=== PATIENT | female | born 1935 | race Caucasian/White ===

== ENCOUNTER 2018-10-14 12:45 | Inpatient (IN) | payer MEDICARE, OTHER ==
[~2018-10-14] VITALS: Ht 154.9 cm; Wt 46.0 kg
--- NOTE | 2018-10-14 12:53 | NUR ---
PT ARRIVED ON FLOOR VIA W/C ACCOMPANIED BY A LADY; ASSISTED TO BED BY CNAS X2; PT CONFUSED NOT ABLE TO ANSWER QUESTIONS OR FOLLOW COMMANDS; ASSISTED PT INTO A GOWN AFTER MULTIPLE ATTEMPTS; WT AND VITALS OBTAINED; BED ALARM ACTIVE; PT KEPT COVERING HER HEAD, SAYING "GET OUT OF MY HOUSE, DONT' HIT ME" ASSURED PT WE ARE NOT HURTING HER; WILL CONTINUE TO MONITOR.
[2018-10-14 13:10] VITALS: BP 100/60
[2018-10-14 13:23] LABS: HEMATOCRIT 48.4 % (37.0-47.0); HEMOGLOBIN 14.9 g/dl (12.0-16.0); IMMATURE GRANULOCYTES 0.3 % (0.0-5.0); MEAN CELL VOLUME 91.8 fL CALC (80.0-100.0); MEAN CORPUSCULAR HGB 28.3 pG CALC (26.0-32.0); MEAN CORPUSCULAR HGB CONC 30.8 g/L CALC (32.0-36.0); NEUT# 4.86 thou/uL (2.00-7.15); RED BLOOD COUNT 5.27 mill/uL (4.20-5.60)
--- NOTE | 2018-10-14 14:07 | NUR ---
PT GOING DOWN FOR CT, VIA STRETCHER ACCOMPANIED BY TWO STAFF IN STABLE CONDITION.
--- NOTE | 2018-10-14 14:30 | NUR ---
PT BACK FROM CT VIA STRETCHER, ACCOMPANIED BY TWO STAFF MEMBERS; UNABLE TO PREFORM CT AND XRAY DUE TO PT BEING RESTLESS. NO S/S OF DISTRESS NOTED;
[2018-10-14] MEDS ORDERED: MULTI VIT PO (14:36)
[2018-10-14] MEDS ORDERED: DOCUSATE CAL240 MG PO (14:36)
[2018-10-14] MEDS ORDERED: DIVALPROEX SOD250 MG PO (14:39)
[2018-10-14] MEDS ORDERED: ZOCOR PO ×2 (14:44→14:57)
[2018-10-14] MEDS ORDERED: POM PO ×2 (14:45→14:54)
[2018-10-14] MEDS ORDERED: LORAZEPAM0.5 MG PO ×2 (14:46→14:47)
[2018-10-14] MEDS ORDERED: OLANZAPINE5 MG PO (14:47)
[2018-10-14 16:35] LABS: ALBUMIN 3.4 g/dL (3.2-5.0); ALKALINE PHOSPHATASE 88 u/l (38-126); ANION GAP 14 (6-22 (CALC)); BILIRUBIN, TOTAL 0.4 mg/dL (0.0-1.4); BUN 25 mg/dL (8-23); BUN/CREATININE RATIO 32 (12-20 (CALC)); CARBON DIOXIDE 23 mmol/l (22-30); CHLORIDE 107 mmol/l (95-108); CREATININE 0.8 mg/dL (0.5-1.0); GFR > 60 ML/MIN (>=60 (CALC)); GFR FOR AFR.AMER. > 60 ML/MIN (>=60 (CALC)); POTASSIUM 4.2 mmol/l (3.5-5.1); SGOT/AST 32 u/l (9-36); SODIUM 140 mmol/l (137-146); TOTAL PROTEIN 6.4 g/dL (6.3-8.2)
[2018-10-14 17:04] LABS: TSH, 3RD GENERATION 2.85 uIU/mL (0.47 - 4.68)
--- NOTE | 2018-10-14 17:08 | NUR ---
PT APPEARS TO BE SLEEPING WITH EYES CLOSED LAYING ON LT SIDE; RESP EVEN AND UNLABORED ON ROOM AIR; IVF FLOWING WITH EASE; SITE APPEARS HEALTHY; BED ALARM ACTIVE; WILL CONTINUE TO MONITOR.
[2018-10-14 17:44] VITALS: BP 102/64
--- NOTE | 2018-10-14 18:17 | NUR ---
MOD INCONTINENT URINE, PER CARE PROVIDED; SITTING UP IN BED EATING SUPPER; RESP EVEN AND UNLABORED; IVF INFUSING WELL; BED ALARM ACTIVE;
[2018-10-14 20:53] VITALS: BP 91/62
--- NOTE | 2018-10-14 22:56 | NUR ---
Patient resting in bed. No S&S of distress. Patient is confused and pulling at covers and is sideways in bed. Patient straightened up. No complaints of pain. Will continue to monitor patient progress.
--- NOTE | 2018-10-15 00:40 | NUR ---
Patient resting in bed sleep. No S&S of distress. Spoke with x-ray tech. Patient does not follow directions and will not be still inorder to get an accurate reading. MD notified. Will attempt again in the am.
[2018-10-15 04:00] VITALS: BP 84/51
--- NOTE | 2018-10-15 04:17 | NUR ---
Patient continues to sleep. No S&S of distress. v/s wnl. No change in previous condition.
--- NOTE | 2018-10-15 08:00 | NUR ---
PT APPEARS TO BE SLEEPING WITH EYES CLOSED ON HER RT SIDE; RESP EVEN AND UNLABORED ON ROOM AIR; IVF D5-1/2 @100CC/HR; SITE APPEARS HEALTHY; VITALS OBTAINED; BED ALARM ACTIVE; CALL DURÁN IN REACH; WILL CONTINUE TO MONITOR.
[2018-10-15 08:02] VITALS: BP 94/53
--- NOTE | 2018-10-15 11:02 | NUR ---
PT APPEARS TO BE SLEEPING ON HER LT SIDE; RESP EVEN AND UNLABORED ON ROOM AIR; IVF INFUSING WELL, IVS APPEARS HEALTHY; NO S/S OF DISTRESS NOTED; BED ALARM ACTIVE; WILL CONTINUE TO MONITOR.
--- NOTE | 2018-10-15 11:17 | NUR ---
ETHAN WIGGINS (DAUGHTER & SURROGATE) LIVES IN [place] [phone] CLD FOR UPDATE
--- NOTE | 2018-10-15 12:24 | NUR ---
PT SEEMS AWAKE AND IS EATING LUNCH WITH ASSISTANCE BY FORECLOSURE PARALEGAL; RESP EVEN AND UNLABORED ON ROOM AIR; IVF INFUSING WELL; BED ALARM ACTIVE; WILL CONTINUE TO MONITOR.
[2018-10-15 14:40] VITALS: BP 128/81
[2018-10-15 15:00] VITALS: BP 97/65
--- NOTE | 2018-10-15 15:20 | NUR ---
PT AWAKE, SEEMS TO BE WATCHING TV, PARTIAL NUDE, REMOVING CLOTHING, SHEETS,; DOES NOT FOLLOW COMMANDS, BUT PLEASANT; IVF INFUSING WELL, BED ALARM ACTIVE; WILL CONTINUE TO MONITOR.
--- NOTE | 2018-10-15 19:00 | NUR ---
RECEIVED REPORT FROM DAY NURSE. PT RESTING CROOKEDLY IN BED. BLANKET OVER HER HEAD. PT FIXED UPRIGHT. CALL DURÁN IN PLACE. BED ALARM ON. WILL CONTINUE TO MONITOR.
[2018-10-15 19:23] VITALS: BP 91/64
--- NOTE | 2018-10-15 20:30 | NUR ---
PT RESTING IN BED PT IS CROOKED IN BED AND WILL NOT STAY THE RIGHT WAY. PT IS VERY CONFUSED. TALKING TO HERSELF AND TO ENTEROSTOMAL THERAPY NURSE. WILL NOT ANSWER CORRECTLY WHEN ASKED HER NAME SHE JUST CONTINUES TO RAMBLE. ASSESMENT COMPLETED AT THIS TIME. IV INFUSING WELL. BED ALARM IN PLACE. WILL CONTINUE TO MONITOR.
--- NOTE | 2018-10-15 22:36 | NUR ---
CYLINDER MACHINE OPERATOR IN TO CHECK ON PT. IV FOUND DISLODGED. DR. ANDERS CALLED, NEW ORDERS RECEIVED TO D/C FLUIDS AND IV. PT CLEANED AND REPOSITIONED. BED ALARM IN PLACE. CALL DURÁN IN REACH. WILL CONTINUE TO MONITOR.
--- NOTE | 2018-10-16 01:02 | NUR ---
PT RESTING IN BED WITH EYES CLOSED. NO S/S OF DISTRESS NOTED. BED ALARM IN PLACE. WILL CONTINUE TO MONITOR.
[2018-10-16 03:59] VITALS: BP 96/60
--- NOTE | 2018-10-16 04:00 | NUR ---
PT RESTING QUIETLY IN BED. PT LAYING DIAGONAL IN BED CURLED UP IN A BALL. REPOSITION MULTIPLE TIMES THROUGH THE NIGHT AND PT REVERTS BACK TO ORIGINAL POSITION. BED ALARM IN PLACE. WILL CONTINUE TO MONITOR.
--- NOTE | 2018-10-16 07:00 | NUR ---
REPORT RECEIVED FROM DELANO DUPONT;PT APPEARS TO BE SLEEPING IN SEMI FOWLERS POSITION;RESPIRATIONS EVEN AND UNLABORED ON RA;NO S/S OF DISTRESS NOTED AT THIS TIME;FALL PRECAUTIONS IN PLACE WITH BED ALARM ON FOR PT SAFETY;CALL LIGHT IN REACH;WILL CONTINUE TO MONITOR
[2018-10-16 08:20] VITALS: BP 98/68
--- NOTE | 2018-10-16 08:20 | NUR ---
PT RESTING IN SEMI FOWLERS POSITION ATTEMPTING TO EAT BREAKFAST;CONFUSED X4, ATTEMPTED TO RE-ORIENT PT BUT UNSUCCESSFUL;PT RAMBLES ON ABOUT THE WEATHER AND THE NEWSPAPER;VS OBTAINED AND ASSESSMENT COMPLETED;RESPIRATIONS EVEN AND UNLABORED ON RA,CLEAR LUNG SOUNDS NOTED;ABDOMEN SOFT ON PALPATION AND ACTIVE IN ALL 4 QUADRANTS;STRONG PEDAL PULSES;SKIN INTACT;NO IV SITE,MD AWARE;PO FLUIDS ENCOURAGED;NO S/S OF DISTRESS NOTED,PAIN SCALE AND REPORTING EDUCATED;SAFETY PRECAUTIONS IN PLACE WITH BED ALARM ON FOR PT SAFETY;CALL LIGHT IN REACH;WILL CONTINUE TO MONITOR
--- NOTE | 2018-10-16 08:34 | NUR ---
AT BEDSIDE DISCUSSING POC.
--- NOTE | 2018-10-16 12:05 | NUR ---
PT RESTING IN SEMI FOWLERS POSITION WITH INSTRUCTOR PRIVATE'S AT BEDSIDE RECEIVING A BED BATH AFTER BOWEL MOVEMENT;PT REMAINS CONFUSED;RESPIRATIONS EVEN AND UNLABORED ON RA;NO S/S OF DISTRESS NOTED;PO FLUIDS AND FOOD ENCOURAGED;ASSESSMENT REMAINS UNCHANGED AT THIS TIME;ALL SAFETY PRECAUTIONS REINFORCED WITH BED ALARM ON FOR SAFETY AND CALL LIGHT IN REACH;WILL CONTINUE TO MONITOR
--- NOTE | 2018-10-16 16:50 | NUR ---
PT APPEARS TO BE SLEEPING IN SEMI FOWLERS POSITION WITH BLANKETS OVER HER FACE;RESPIRATIONS EVEN AND UNLABORED ON RA;NO S/S OF DISTRESS NOTED;FALL PRECAUTIONS IN PLACE WITH BED ALARM ON FOR PT SAFETY;CALL LIGHT IN REACH;WILL CONTINUE TO MONITOR
[2018-10-16 18:24] VITALS: BP 100/69
--- NOTE | 2018-10-16 19:00 | NUR ---
RECEIVED REPORT FROM NURSE ALDO PT RESTING IN BED, NO DISCOMFORTS NOTED, BED ALARM IN PLACE
[2018-10-16 19:17] VITALS: BP 93/58
[2018-10-16 19:19] LABS: CHOLESTEROL HDL RATIO 3.7 (<4.4 (CALC))
--- NOTE | 2018-10-16 20:00 | NUR ---
PATIENT RESTING IN BED TALKING TO SELF, CONFUSED X4 UABLE TO REORIENT. NO IV MD PREVIOUSLY NOTIFIED, PT IS [place], NO DISCOMFORTS NOTED AT THIS TIME, REMAINS ON BED ALARM.
--- NOTE | 2018-10-17 | NUR ---
PATIENT IN BED,EYES CLOSED, EVEN UNLABORED BREATHING, REMAINS ON BED ALARM.
[2018-10-17 02:29] VITALS: BP 100/62
[2018-10-17 04:53] VITALS: BP 102/65
--- NOTE | 2018-10-17 05:18 | NUR ---
PATIENT AWAKE, RESTING IN BED, TALKING TO SELF, NO DISCOMFORTS NOTED AT THIS TIME, BED ALARM IN PLACE.
[2018-10-17 05:41] LABS: HEMOGLOBIN 13.2 g/dl (12.0-16.0); IMMATURE GRANULOCYTES 0.3 % (0.0-5.0); MEAN CELL VOLUME 86.9 fL CALC (80.0-100.0); MEAN CORPUSCULAR HGB CONC 32.2 g/L CALC (32.0-36.0); NEUT# 2.8 thou/uL (2.00-7.15); RED BLOOD COUNT 4.72 mill/uL (4.20-5.60); RED CELL DISTRI WIDTH 14.6 % (11.5-15.5)
[2018-10-17 06:04] LABS: ALBUMIN 3.1 g/dL (3.2-5.0); ALKALINE PHOSPHATASE 91 u/l (38-126); ANION GAP 13 (6-22 (CALC)); BILIRUBIN, TOTAL 0.6 mg/dL (0.0-1.4); BUN 11 mg/dL (8-23); BUN/CREATININE RATIO 17 (12-20 (CALC)); CARBON DIOXIDE 21 mmol/l (22-30); CHLORIDE 111 mmol/l (95-108); CREATININE 0.7 mg/dL (0.5-1.0); GFR > 60 ML/MIN (>=60 (CALC)); GFR FOR AFR.AMER. > 60 ML/MIN (>=60 (CALC)); POTASSIUM 3.6 mmol/l (3.5-5.1); SGOT/AST 34 u/l (9-36); SODIUM 141 mmol/l (137-146); TOTAL PROTEIN 6.1 g/dL (6.3-8.2)
--- NOTE | 2018-10-17 06:40 | NUR ---
PT REPORT RECEIVED FROM GONZALO BISHOP. PT RESTING. NO S/S OF DISTRESS. CALL LIGHT IN REACH. WILL CONTINUE TO MONITOR.
[2018-10-17 09:04] VITALS: BP 103/67
--- NOTE | 2018-10-17 09:04 | NUR ---
PT NOT RESPONDING MUCH. MOANS AT TIMES. RESP EVEN AND UNLABORED. LUNG SOUNDS CLEAR. BOWEL SOUNDS ACTIVE X4. STRONG RADIAL AND PEDAL PULSES. SKIN INTACT. PTP DENIES ANY PAIN OR NEEDS. POC DISCUSSED. SAFETY PRECAUTIONS IN PLACE. CALL LIGHT IN REACH. WILL CONTINUE TO MONITOR.
--- NOTE | 2018-10-17 12:05 | NUR ---
PT RESTING IN BED. NO C/O PAIN OR NEEDS. CALL LIGHT IN REACH. BED ALARM ON. WILL CONTINUE TO MONITOR.
[2018-10-17 15:51] VITALS: BP 112/71
--- NOTE | 2018-10-17 16:25 | NUR ---
PT IN BED SLEEPING. NO C/O PAIN OR NEEDS. CALL LIGHT IN REACH. BED ALARM ON. WILL CONTINUE TO MONITOR.
--- NOTE | 2018-10-17 19:00 | NUR ---
RECEIVED REPORT FROM DAY NURSE. PT RESTING QUIETLY IN BED NO S/S OF DISTRESS NOTED.
[2018-10-17 19:17] VITALS: BP 82/62
--- NOTE | 2018-10-17 20:40 | NUR ---
PT RESTING IN BED WITH BLANKET OVER HER HEAD, SIDE WAYS IN THE BED. ASSESMENT COMPLETED AT THIS TIME. PT IS PLEASANTLY CONFUSED. PT CHATTY . PT DOES NOT ANSWER QUESTIONS APPROPRATELY. NO IV PER PHYSICIAN. NO EDEMA NOTED.
--- NOTE | 2018-10-18 | NUR ---
PT RESTING IN BED TALKING TO HERSELF. NO S/S OF DISTRESS NOTED. CALL DURÁN IN REACH. WILL CONTINUE TO MONITOR.
[2018-10-18 00:57] VITALS: BP 118/84
--- NOTE | 2018-10-18 04:00 | NUR ---
PT RESTING IN BED TALKING TO HERSELF WITH BLANKETS OVER HER HEAD. BED ALARM IN PLACE. CALL DURÁN IN REACH. WILL CONTINUE TO MONITOR.
[2018-10-18 04:55] VITALS: BP 106/66
--- NOTE | 2018-10-18 07:00 | NUR ---
REPORT RECEIVED FROM DELANO DUPONT;PT APPEARS TO BE SLEEPING IN LEFT SIDE LAYING POSITION;RESPIRATIONS EVEN AND UNLABORED ON RA;NO S/S OF DISTRESS NOTED;FALL PRECAUTIONS IN PLACE WITH BED IN THE LOWEST POSITION AND BED ALARM ON FOR PT SAFETY;CALL LIGHT IN REACH;WILL CONTINUE TO MONITOR
--- NOTE | 2018-10-18 08:30 | NUR ---
SPOKE WITH KATHY (BROTHER) REGARDING PATIENT POA PER . KATHY STATES "I DONT KNOW WHO THAT IS. YOU WILL HAVE TO ASK BONNIE";BONNIE IS PATIENTS DAUGHTER;VOICEMAIL LEFT FOR BONNIE AT [phone],AWAITING RETURN CALL.
[2018-10-18 09:54] VITALS: BP 116/74
--- NOTE | 2018-10-18 10:00 | NUR ---
PT APPEARS TO BE SLEEPING IN SUPINE POSITION,AWAKES TO PHYSICAL STIMULI;PT CONFUSED WITH NO-RESPONSE WHEN ASKED QUESTIONS,PLEASANT;VS OBTAINED AND ASSESSMENT COMPLETED;PT DENIES ANY CURRENT PAIN OR DISCOMFORTS,PAIN SCALE AND REPORTING EDUCATED;RESPIRATIONS SHALLOW ON RA,DIMINISHED LUNG SOUNDS NOTED;ABDOMEN SOFT ON PALPATION AND ACTIVE IN ALL 4 QUADRANTS;WEAK PEDAL PULSES;SKIN INTACT;NO IV SITE,MD AWARE;ENCOURAGED PT TO CALL FOR ASSISTANCE IF NEEDED;FALL PRECAUTIONS IN PLACE WITH BED ALARM ON FOR SAFETY;CALL LIGHT IN REACH;WILL CONTINUE TO MONITOR
--- NOTE | 2018-10-18 11:25 | NUR ---
PT APPEARS TO BE SLEEPING IN SUPINE POSITION WITH BLANKET OVER HER FACE;RESPIRATIONS EVEN AND UNLABORED ON RA;NO S/S OF DISTRESS NOTED;FALL PRECAUTIONS REMAIN IN PLACE WITH BED IN THE LOWEST POSITION AND BED ALARM ON FOR SAFETY;CALL LIGHT IN REACH;WILL CONTINUE TO MONITOR
--- NOTE | 2018-10-18 15:29 | NUR ---
PT APPEARS TO BE SLEEPING IN SUPINE POSITION;NO S/S OF DISTRESS NOTED;RESPIRATIONS REMAIN EVEN AND UNLABORED ON RA;ASSESSMENT UNCHANGED;FALL PRECAUTIONS IN PLACE WITH BED ALARM ON FOR SAFETY;CALL LIGHT IN REACH;WILL CONTINUE TO MONITOR
[2018-10-18 16:00] VITALS: BP 99/67
--- NOTE | 2018-10-18 19:05 | NUR ---
REPORT FROM ALDO WICK. PT RESTING IN BED WITH EYES OPEN. PT REMOVING CLOTHING AND LINENS. PT REDIRECTED AND REDRESSED AT THIS TIME. OFF GOING NURSE REPORTED NO IV SITE AND PHYSICIAN AWARE. PT ALERT TO SELF AT THIS TIME HOWEVER CONFUSED. PT DENIES ANY PAIN OR DISCOMFORT. CALL LIGHT WITHIN REACH AND BED ALARM IN PLACE FOR SAFETY. WILL CONTINUE TO MONITOR.
[2018-10-18 19:50] VITALS: BP 100/62
--- NOTE | 2018-10-18 21:11 | NUR ---
PT TOOK SCHEDULED MEDICATIONS WITHOUT DIFFICULTY. PT REMAINS CONFUSED AND ATTEMPTING TO REMOVE GOWN AND BED LINENS. WILL CONTINUE TO MONITOR.
--- NOTE | 2018-10-18 22:10 | NUR ---
PT REMOVED BRIEF AND WAS NOTED WITH STOOL ON HANDS AND IN MOUTH. COMPLETE BED BATH, LINEN CHANGE, AND ORAL CARE PROVIDED BY STAFF. PT REMAINS CONFUSED. CALL LIGHT WITHIN REACH, AND BED ALARM FOR SAFETY.
--- NOTE | 2018-10-19 02:16 | NUR ---
RESTING IN BED WITH COVERS OVER HER HEAD. NO DISTRESS NOTED. CALL LIGHT WITHIN REACH. BED ALARM FOR SAFETY.
[2018-10-19 05:25] VITALS: BP 96/64
--- NOTE | 2018-10-19 05:43 | NUR ---
PT REPOSITIONED IN BED. VS STABLE. PT DOES NOT APPEAR TO BE IN ANY PAIN AND NO DISTRESS NOTED. CALL LIGHT WITHIN REACH AND BED ALARM ON FOR SAFETY.
[2018-10-19 08:00] VITALS: BP 87/62
--- NOTE | 2018-10-19 10:41 | NUR ---
PT SEEN RESTING IN THE BED, EYES CLOSED. SHE DID WAKE UP ENOUGH TO TAKE HER MORNING MEDS, BUT DID NOT STAY AWAKE. NO ACUTE DISTRESS NOTED, APPEARS TO HAVE LATE DEMENTIA.
[2018-10-19 14:36] VITALS: BP 110/62
--- NOTE | 2018-10-19 15:23 | NUR ---
PT PROVIDED XANAX FOR RESTLESSNESS. SHE IS AWAKE, MOVING AROUND IN THE BED WITHOUT PURPOSE.
--- NOTE | 2018-10-19 16:13 | NUR ---
PT SEEN RESTING UNDER THE COVERS, NO DISTRESS, NO ACTING OUT.
--- NOTE | 2018-10-19 18:06 | NUR ---
PT FED MEAL TONIGHT, MINIMAL INTAKE. DR ANDERS RELATES CONVERSATION WITH DAUGHTER, DISCUSSION OF APPROPRIATE DISPOSITION.
--- NOTE | 2018-10-19 18:45 | NUR ---
REPORT FROM NOEMI SÁNCHEZ. RESTING IN BED. ALERT TO SELF. NO DISTRESS NOTED. RESPIRATIONS EVEN AND UNLABORED. CALL LIGHT WITHIN REACH AND BED ALARM IN PLACE FOR SAFETY.
[2018-10-19 18:52] VITALS: BP 104/76
--- NOTE | 2018-10-19 23:04 | NUR ---
PT RESTING IN BED. PT CONTINUOUSLY REMOVING GOWN AND BED LINENS. NO DISTRESS NOTED. CALL LIGHT WITHIN REACH. WILL CONTINUE TO MONITOR.
[2018-10-20 04:27] VITALS: BP 117/74
--- NOTE | 2018-10-20 04:39 | NUR ---
PT ALERT TO SELF. COMPLETE BED BATH AND LINEN CHANGE AT THIS TIME. PT TOLERATED WELL. NO DISTRESS NOTED. CALL LIGHT WITHIN REACH AND BED ALARM FOR SAFETY. WILL CONTINUE TO MONITOR.
--- NOTE | 2018-10-20 07:00 | NUR ---
PT REPORT RECIEVED FROM DELANO CARL. PT RESTING IN BED. NO S/S OF DISTRESS. CALL LIGHT IN REACH. WILL CONTINUE TO MONITOR.
[2018-10-20 07:37] VITALS: BP 105/67
--- NOTE | 2018-10-20 07:37 | NUR ---
PT ALERT BUT NOT ORIENTED. SHE WILL TALK ABOUT DIFFERENT THINGS BUT DOES NOT SEEM TO ANSWER ANY QUESTIONS ASKED. RESP SHALLOW. LUNG SOUNDS CLEAR. BOWEL SOUNDS ACTIVE X4. STRONG RADIAL AND PEDAL PULSES. NO IV SITE. SKIN INTACT. PT DENIES ANY PAIN OR NEEDS. POC DISCUSSED. SAFETY PRECAUTIONS IN PLACE. BED ALARM ON. CALL LIGHT IN REACH. WILL CONTINUE TO MONITOR.
--- NOTE | 2018-10-20 12:09 | NUR ---
HR REPRESENTATIVE ASSISTED PT TO EAT LUNCH. PT VERY PLEASANT, ENGAGING IN CONVERSATION. HOLDING DRINK HERSELF AND TOLERATING WELL. NO C/O PAIN OR NEEDS. BED ALARM ON. CALL LIGHT IN REACH. WILL CONTINUE TO MONITOR.
--- NOTE | 2018-10-20 16:00 | NUR ---
PT RESTING IN BED. NO C/O PAIN OR NEEDS. CALL LIGHT IN REACH. BED ALARM ON. WILL CONTINUE TO MONITOR.
[2018-10-20 16:04] VITALS: BP 95/67
[2018-10-20 18:50] VITALS: BP 95/67
--- NOTE | 2018-10-20 19:00 | NUR ---
REPORT RECIEVED FROM DELANO ROCK. PT RESTING IN BED. NO SIGNS OR SYMPTOM OF DISTRESS. SAFETY PRECAUTIONS IN PLACE. BED ALARM ACTIVE FOR PT SAFETY. WILL CONTINUE TO MONITOR.
--- NOTE | 2018-10-20 19:02 | NUR ---
PT BP READING 95/67, PULSE 124. DR. ANDERS CALLED. NEW ORDERS AT THIS TIME.
--- NOTE | 2018-10-20 19:35 | NUR ---
PT HAD A BM. SMALL BALLS OF POOP NOTED IN BED WITH PT. PT HAD POOP ON HANDS. PT CLEANED UP AND BED LINENS CHANGED. BED ALARM ACTIVE FOR PT SAFETY. WILL CONTINUE TO MONITOR.
[2018-10-20 20:26] VITALS: BP 93/57
--- NOTE | 2018-10-21 | NUR ---
PT RESTING IN BED. RESPIRATIONS EVEN AND UNLABORED. BED ALARM ACTIVE FOR PT SAFETY, WILL CONTINUE TO MONITOR.
--- NOTE | 2018-10-21 03:02 | NUR ---
PT PRESSED CALL BUTTON, PT FOUND LAYING IN BED PLAYING WITH CALL DURÁN. NO SIGNS OR SYMPTOMS OF DISTRESS. PT CONFUSED. BED ALARM ACTIVE FOR PT SAFETY. WILL CONTINUE TO MONITOR.
[2018-10-21 04:44] VITALS: BP 94/60
[2018-10-21 08:07] VITALS: BP 98/71
--- NOTE | 2018-10-21 08:07 | NUR ---
PT CONFUSED, DRWOSY THIS MORNING. RESP SHALLOW. LUNG SOUNDS CLEAR. BOWEL SOUNDS ACTIVE X4. STRONG RADIAL AND PEDAL PULSES. SLIGHT REDNESS TO BUTTOCK NOTED; TURNING PT. SKIN INTACT. NO C/O PAIN OR NEEDS. SAFETY PRECAUTIOS IN PLACE. CALL LIGHT IN REACH. BED ALARM ON. WILL CONTINUE TO MONITOR.
--- NOTE | 2018-10-21 12:01 | NUR ---
PT RESTING IN BED. NO C/O PAIN OR NEEDS. CALL LIGHT IN REACH. BED ALARM ON. WILL CONTINUE TO MONITOR.
--- NOTE | 2018-10-21 16:00 | NUR ---
PT ASLEEP IN BED. NO C/O PAIN OR NEEDS. BED ALARM ON. CALL LIGHT IN REACH. WILL CONTINUE TO MONITOR.
[2018-10-21 16:38] VITALS: BP 102/79
[2018-10-21 19:00] VITALS: BP 113/76
--- NOTE | 2018-10-21 19:30 | NUR ---
PATIENT RESTING IN BED WITH HEAD COVERED WITH SHEET AMD IN POSITION. EYES ARE CLOSED AND APPEARS SLEEPING AT THIS TIME. RESP ARE EVEN AND LABORED. BED ALARM IN PLACE. CALL LIGHT IN REACH. WILL CONT TO MONITOR.
--- NOTE | 2018-10-21 21:00 | NUR ---
PATIENT RESTING IN BED-PATIENT IS CONFUSED AND UNABLE TO VERIFY OR EVEN HER FULL NAME. SCHEDULED MEDS GIVEN ORDERED WITH MAGIC CUP WITHOUT ANY DIFFICULTY. BED ALARM REMAINS IN PLACE FOR PATIENT SAFETY. CALL LIGHT IN REACH. WILL CONT TO MONITOR.
--- NOTE | 2018-10-22 00:49 | NUR ---
PATIENT RESTING IN BED-IN POSITION WITH SHEET OVER HER HEAD. APPEARS SLEEPING WITH EYES CLOSED. BED ALARM IN PLACE FOR PATIENT SAFETY. CALL LIGHT IN REACH. WILL CONT TO MONITOR.
--- NOTE | 2018-10-22 03:21 | NUR ---
PATIENT REMAINS SLEEPING AT THIS TIME IN POSITION. RESP ARE EVEN AND SHALLOW. BED ALARM IN PLACE. CALL LIGHT IN REACH. WILL CONT TO MONITOR.
[2018-10-22 03:51] VITALS: BP 98/65
--- NOTE | 2018-10-22 07:00 | NUR ---
pt report recieved from shannan pennington. pt asleep. no s/s of distress. call light in reach. will continue to monitor.
[2018-10-22 07:35] VITALS: BP 90/58
--- NOTE | 2018-10-22 07:35 | NUR ---
PT CONFUSED, RESP SHALLOW. LUNG SOUNDS CLEAR. BOWEL SOUNDS HYPOACTIVE. STRONG RADIAL AND PEDAL. SLLIGHT REDNESS TO BUTTOCK NOTED; PT READJUSTED IN BED AND BARRIER CREAM APPLIED NEEDED. SKIN INTACT. NO C/O PAIN OR NEEDS. SAFETY PRECAUTIONS IN PLACE. BED ALARM IN PLACE. CALL LIGHT IN REACH. WILL CONTINUE TO MONITOR.
--- NOTE | 2018-10-22 12:00 | NUR ---
PT IN BED WATCHING TELEVISION. NO C/O PAIN OR NEEDS. CALL LIGHT IN REACH. BED ALARM ON. WILL CONTINUE TO MONITOR.
--- NOTE | 2018-10-22 15:54 | NUR ---
PT SITTING IN BED DRINKING JUICE W/ ASSISTANCE OF RESIDENTIAL SUPPORT SPECIALIST. NO C/O PAIN OR NEEDS. BED ALARM ON. CALL LIGHT IN REACH. WILL CONTINUE TO MONITOR.
[2018-10-22 16:04] VITALS: BP 102/75
--- NOTE | 2018-10-22 19:00 | NUR ---
RECEIVED REPORT FROM NURSE MARSHA, PT RESTING IN BED, EVEN UNLABORED BREATHING CALL LIGHT WITHIN REACH, BED ALARM IN PLACE
[2018-10-22 19:07] VITALS: BP 103/67
--- NOTE | 2018-10-22 20:00 | NUR ---
PATIENT RESTING IN BED, CONFUSIONS NOTED, UNABLE TO MAKE NEEDS KNOWN, STAFF ANTICIPATES NEEDS, INCONTINENT CARE PROVIDED, NO DISCOMFORTS NOTED AT THIS TIME, BED ALARM IN PLACE.
--- NOTE | 2018-10-23 00:36 | NUR ---
PATIENT WAS RESTLESS, TOSSING BLANKETS REMOVING CLOTHES, PRN XANAX GIVEN WILL REEVALUATE.
[2018-10-23 04:28] VITALS: BP 121/83
--- NOTE | 2018-10-23 06:30 | NUR ---
PATIENT IN BED, AWAKE, NO DISCOMFORTS NOTED, BED ALARM IN PLACE.
--- NOTE | 2018-10-23 06:59 | NUR ---
REPORT RECEIVED FROM NIGHT NURSE; PT LAYING IN BED WITH COVERS OVER HER HEAD; RESP EVEN AND UNLABORED; WILL CONTINUE TO MONITOR.
[2018-10-23 09:44] VITALS: BP 95/67
--- NOTE | 2018-10-23 09:46 | NUR ---
ASSESSMENT COMPLETED; PT LAYING IN BED AWAKE, TALKING TO SELF; REMAIN CONFUSED; UNABLE TO MAKE NEEDS KNOWN; RESP EVEN AND UNLABORED ON ROOM AIR; VITALS OBTAINED; CALL DURÁN IN REACH; BED ALARM ACTIVE; NO S/S OF DISTRESS NOTED; WILL CONTINUE TO MONITOR.
--- NOTE | 2018-10-23 10:30 | NUR ---
SPOKE WITH ARTHUR FROM [facility] ([phone]) REGARDING PT.
--- NOTE | 2018-10-23 12:17 | NUR ---
PT HAD A BED BATH; APPEARS TO BE SLEEPING WITH EYES CLOSED; RESP EVEN AND UNLABORED; BED ALARM ACTIVE, NO S/S OF DISTRESS NOTED;
--- NOTE | 2018-10-23 13:45 | NUR ---
READJUST PT IN BED, [employer] SOLUTION ARCHITECT ASSIST PT WITH LUNCH, DRANK MOST OF ENSURE, TOLERATED WELL.
[2018-10-23 17:00] VITALS: BP 88/60
--- NOTE | 2018-10-23 17:08 | NUR ---
PT HAD MOD INCONT VOID, MALA CARE PROVIDED, READJUST PT IN BED; BED ALARM ACTIVE; WILL CONTINUE TO MONITOR.
[2018-10-23 19:00] VITALS: BP 97/67
--- NOTE | 2018-10-23 19:27 | NUR ---
RECEIVED REPORT FROM NURSE HURTADO PATIENT RESTING IN BED AWAKE, TRASHING BED, WILL REASSESS, PLACE ON BED ALARM.
--- NOTE | 2018-10-23 20:00 | NUR ---
PATIENT RESTING IN BED, AWAKE WITH CONFUSIONS NOTED, NO DISCOMFORTS NOTED AT THIS TIME, PRN XANAX GIVEN EARLIER R/T RESTLESSNESS, PATIENT WAS SHOWERED. PLACED ON BED ALARM.
--- NOTE | 2018-10-23 23:52 | NUR ---
PATIENT APPEARS TO BE SLEEPING, EYES CLOSED, EVEN UNLABORED BREATHING, NO DISCOMFORTS NOTED AT THIS TIME, REMAINS ON BED ALARM.WILL CONTINUE TO MONITOR
[2018-10-24 04:00] VITALS: BP 100/72
--- NOTE | 2018-10-24 04:00 | NUR ---
PATIENT RESTING IN BED, NO DISCOMFORT NOTED, INCONTINENT CARE PROVIDED, REMAINS ON BED ALARM.
--- NOTE | 2018-10-24 07:00 | NUR ---
PT REPORT RECIEVED FROM EDNA Louis RN. PT SLEEPING. NO S/S OF DISTRESS. CALL LIGHT IN REACH. WILL CONTINUE TO MONITOR.
[2018-10-24 08:50] VITALS: BP 90/64
--- NOTE | 2018-10-24 08:50 | NUR ---
PT CONFUSED. RESP EVEN AND UNLABORED. LUNG SOUNDS CLEAR. BOWEL SOUNDS HYPOACTIVE X4. WEAK RADIAL AND PEDAL PULSES. PT HAS REDNESS TO HER BUTTOCK; BARRIER CREAM APPLIED, TURNED TO LT SIDE TO REDUCE PRESSURE. SKIN INTACT. PT DENIES AND PAIN OR NEEDS. SAFETY PRECAUTIONS IN PLACE. BED ALARM ON. CALL LIGHT IN REACH. WILL CONTINUE TO MONITOR.
--- NOTE | 2018-10-24 12:05 | NUR ---
PT RESTING IN BED. NO C/O PAIN OR NEEDS. CALL LIGHT IN REACH. BED ALARM ON. WILL CONTINUE TO MONITOR.
[2018-10-24 14:50] VITALS: BP 97/67
--- NOTE | 2018-10-24 16:22 | NUR ---
PT RESTING. NO C/O PAIN OR NEEDS. CALL LIGHT IN REACH. BED ALARM ON. WILL CONTINUE TO MONITOR.
--- NOTE | 2018-10-24 18:35 | NUR ---
PT TRANSPORTED TO [facility] IN STABLE CONDITION
== END 2018-10-24 18:15 | DRG 885 ==
LOC: MS2 12:45
PROVIDERS: ADMIT Internal Medicine Geriatric Medicine; ATTEND Internal Medicine Geriatric Medicine
DX: F25.0 Schizoaffective disorder, bipolar type (principal); Z68.1 Body mass index [BMI] 19.9 or less, adult; F41.1 Generalized anxiety disorder; R62.7 Adult failure to thrive; E03.9 Hypothyroidism, unspecified; R00.0 Tachycardia, unspecified
CPT/HCPCS: G0378; G0379